=== PATIENT | male | born 1970 | race Asian ===

== ENCOUNTER 2019-01-26 17:01 | Emergency (ER) | payer BC, OTHER ==
[2019-01-26 17:56] LABS: BASOPHILS # (AUTO) 0.1 10^3/uL (0.0-0.1); BASOPHILS % (AUTO) 0.5 %; EOSINOPHILS # (AUTO) 0.2 10^3/uL (0.0-0.7); EOSINOPHILS % (AUTO) 1.7 %; HGB - HEMOGLOBIN 14.1 g/dL (14.0-18.0); LYMPHOCYTES # (AUTO) 1.8 10^3/uL (1.5-3.5); LYMPHOCYTES % (AUTO) 16.2 %; MEAN CORPUSCULAR HEMOGLOBIN 27.3 pg (27.0-31.0); MEAN CORPUSCULAR HGB CONC 31.8 g/dL (32.0-36.0); MEAN CORPUSCULAR VOLUME 85.7 fL (80.0-94.0); MEAN PLATELET VOLUME 10.8 fL (7.4-11.4); MONOCYTES # (AUTO) 0.6 10^3/uL (0.0-1.0); MONOCYTES % (AUTO) 5.4 %; NEUTROPHILS # (AUTO) 8.5 10^3/uL (1.5-6.6); NEUTROPHILS % (AUTO) 75.9 %; PLT - PLATELET COUNT 284 10^3/uL (130-450); RED BLOOD COUNT 5.17 10^6/uL (4.70-6.10); RED CELL DISTRIBUTION WIDTH 12.7 % (12.0-15.0); WHITE BLOOD COUNT 11.2 x10^3/uL (4.8-10.8)
[2019-01-26 18:07] LABS: ALBUMIN 4.3 g/dL (3.2-5.5); ALBUMIN/GLOBULIN RATIO 1.1 (1.0-2.2); BILIRUBIN,TOTAL 0.5 mg/dL (0.2-1.0); CALCIUM 9.2 mg/dL (8.5-10.3); TOTAL PROTEIN 8.2 g/dL (6.7-8.2)
--- NOTE | 2019-01-26 18:31 | ED Physician Documentation ---
History of Present Illness - Stated complaint Stated Complaint: MALE - Chief complaint Chief Complaint: Abd Pain - History obtained from History obtained from: Patient - History of Present Illness Timing: Prior to arrival - Additonal information Additional information: Patient is a 48-year-old male presenting with approximately 2 hours of midline abdominal pain that is associated with mild nausea but no vomiting. Patient denies urinary changes, stool changes, fever or other complaints. Prior to onset of discomfort, patient was at his usual state of health without issue. Patient does report multiple comorbid issues including hypertension, depression, ADHD for which he is relatively noncompliant with medications. No other improving or worsening factors noted. Review of Systems Constitutional: denies: Fever GI: reports: Abdominal Pain, Nausea. denies: Vomiting, Diarrhea : denies: Dysuria PD PAST MEDICAL HISTORY - Past Medical History Past Medical History: Yes Cardiovascular: Hypertension Psych: Depression, ADD/ADHD - Past Surgical History Past Surgical History: Yes General: Gastric surgery - Present Medications Home Medications: Ambulatory Orders Medication Instructions Recorded Confirmed Methylphenidate HCl [Ritalin] 10 mg PO TID 01/26/19 01/26/19 - Allergies Allergies/Adverse Reactions: Allergies Allergy/AdvReac Type Severity Reaction Status Date / Time No Known Drug Allergies Allergy Verified 01/26/19 17:27 PD ED PE NORMAL - Vitals Vital signs reviewed: Yes - General General: Alert and oriented X 3, No acute distress, Well developed/nourished - HEENT HEENT: Atraumatic, Moist mucous membranes - Neck Neck: Supple, no meningeal sign - Cardiac Cardiac: RRR, No murmur - Respiratory Respiratory: No respiratory distress, Clear bilaterally - Abdomen Abdomen: Soft, Non distended. No: Non tender (Mild tenderness in vertical pattern starting from epigastrium to suprapubic area) - Derm Derm: Normal color, Warm and dry, No rash - Extremities Extremities: No deformity, No tenderness to palpate - Neuro Neuro: Alert and oriented X 3, No motor deficit, No sensory deficit - Psych Psych: Normal mood, Normal affect Results - Vitals Vitals: Vital Signs - 24 hr 01/26/19 01/26/19 17:24 20:55 Temperature 36.2 C L Heart Rate 73 70 Respiratory 18 18 Rate Blood Pressure 163/108 H 178/108 H O2 Saturation 97 97 Oxygen O2 Source Room air - Labs Labs: Laboratory Tests 01/26/19 01/26/19 01/26/19 17:50 17:50 18:44 WBC 11.2 H RBC 5.17 Hgb 14.1 Hct 44.3 MCV 85.7 MCH 27.3 MCHC 31.8 L RDW 12.7 Plt Count 284 MPV 10.8 Neut # (Auto) 8.5 H Lymph # (Auto) 1.8 [place] # (Auto) 0.6 Eos # (Auto) 0.2 Baso # (Auto) 0.1 Absolute Nucleated RBC 0.00 Nucleated RBC % 0.0 Sodium 141 Potassium 3.0 L Chloride 104 Carbon Dioxide 26 Anion Gap 11.0 BUN 15 Creatinine 1.0 Estimated GFR (MDRD) 80 L Glucose 120 H Calcium 9.2 Total Bilirubin 0.5 AST 23 ALT 29 Alkaline Phosphatase 64 Total Protein 8.2 Albumin 4.3 Globulin 3.9 Albumin/Globulin Ratio 1.1 Lipase 42 Urine Color YELLOW Urine Clarity CLEAR Urine pH 6.5 Ur Specific [place] 1.020 Urine Protein TRACE Urine Glucose (UA) NEGATIVE Urine Ketones NEGATIVE Urine Occult Blood NEGATIVE Urine Nitrite NEGATIVE Urine Bilirubin NEGATIVE Urine Urobilinogen 0.2 (NORMAL) Ur Leukocyte Esterase NEGATIVE Ur Microscopic Review NOT INDICATED Urine Culture Comments NOT INDICATED PD MEDICAL DECISION MAKING - ED course Complexity details: reviewed results, re-evaluated patient, considered differential, d/w patient, d/w family ED course: Patient presenting with midline abdominal pain. Have lower suspicion for renal disease, UTI, diverticulitis, AAA, appendicitis, pancreatitis, but considered. Given body habitus and physical exam and considering gastritis, PUD, gallbladder disease, however, patient does not have right upper quadrant tenderness or positive Youngblood sign.Patient started on IV fluid, as well as nausea and pain medication. Screening lab work and urinalysis all returned relatively un remarkable. CT imaging also returned relatively unremarkable except for cholelithiasis otherwise uncomplicated. Discussed results recommendations including these findings on CT with patient and family, as well as recommendations for diet and hydration, return precautions, appropriate follow- up. Otherwise, feel that patient is safe to discharge home. Patient and family voiced understanding and are comfortable with discharge plan. Departure - Departure Disposition: 01 Home, Self Care Clinical Impression: Abdominal pain Condition: Good Instructions: ED Abdominal Pain Unkn Cause Follow-Up: Herman Banda MD [Primary Care Provider] - Within 3 Days Comments: Recommend avoidance of heavy, fried, fatty foods and instead starting with bland diet and advancing as tolerated. Recommend hydration with Powerade/Gatorade and follow-up with your primary care physician next 2 to 3 days. May also try alao-pwy-ejiiddy antacid medication such as Tums, omeprazole, ranitidine as instructed on the box. Return to ED sooner if experience worsening symptoms or have other concerns.
[2019-01-26] MEDS ORDERED: SODIUM CHLORIDE 0.9% 1,000 ML IV ONE (18:35)
[2019-01-26] MEDS ORDERED: ONDANSETRON 4 MG/2 ML VIAL IVP STA (18:36)
[2019-01-26] MEDS ORDERED: fentaNYL 100 MCG/2 ML VIAL IVP STA (18:36)
[2019-01-26 19:05] LABS: BILIRUBIN,URINE NEGATIVE (NEGATIVE); GLUCOSE, URINE (UA) NEGATIVE (NEGATIVE); KETONES,URINE (UA) NEGATIVE (NEGATIVE); LEUKOCYTE ESTERASE, URINE NEGATIVE (NEGATIVE); NITRITE,URINE NEGATIVE (NEGATIVE); OCCULT BLOOD,URINE NEGATIVE (NEGATIVE); PH,URINE 6.5 PH (5.0-7.5); PROTEIN,URINE TRACE mg/dL (NEGATIVE); UROBILINOGEN,URINE 0.2 (NORMAL) E.U./dL (NORMAL)
[2019-01-26 19:11] LABS: CLARITY,URINE CLEAR (CLEAR)
[2019-01-26] MEDS ORDERED: IOVERSOL 320 100 ML VIAL IVP ONE ×2 (19:43→20:05)
--- NOTE | 2019-01-26 20:35 | CT Report ---
Reason: midline abdominal pain Procedure Date: 01/26/2019 Accession Number: [id number] / [id number] Procedure: CT - Abdomen/Pelvis W CPT Code: FULL RESULT: EXAM: CT ABDOMEN AND PELVIS WITH CONTRAST. EXAM DATE: 01/26/2019 08:03 PM. CLINICAL HISTORY: Midline abdominal pain. COMPARISONS: None. TECHNIQUE: Routine helical CT imaging was performed through the abdomen and pelvis. IV contrast: 100 mL Optiray 320. Enteric contrast: No. Reconstructions: Coronal and sagittal. In accordance with CT protocol optimization, one or more of the following dose reduction techniques were utilized for this exam: automated exposure control, adjustment of mA and/or KV based on patient size, or use of iterative reconstructive technique. FINDINGS: Lung Bases: Unremarkable. Liver: Normal. No masses. Gallbladder/Bile Ducts: There is a 2.7 cm gallstone. No evidence of cholecystitis or bile duct obstruction. Spleen: Normal. Pancreas: Normal. Adrenal Glands: There is thickening of the right adrenal glands which contains a small calcification. There is a 1.7 cm left adrenal gland nodule with attenuation value of 72 Hounsfield units. Kidneys: Normal. No masses or hydronephrosis. Peritoneal Cavity/Bowel: Status post gastric sleeve surgery. No small bowel obstruction. No evidence of appendicitis. No free air or fluid collections. Pelvic Organs: Normal. The bladder and visualized pelvic organs are within normal limits. Vasculature: No aneurysms or other significant abnormality. Bones: No significant abnormality. Other: No hernias. IMPRESSION: 1. Cholelithiasis without evidence of cholecystitis or other acute inflammatory process. 2. Left adrenal gland nodule statistically most likely to represent a benign adenoma. Dedicated adrenal gland CT or MRI may be considered for confirmation. [facility]
[2019-01-26] MEDS ORDERED: HYDROmorphone 1 MG/ML CARPUJECT IVP STA (20:57)
[2019-01-26 21:28] VITALS: BP 166/114
== END 2019-01-26 21:27 | disposition home or self-care (01) ==
LOC: ED 17:01
DX: R10.9 Unspecified abdominal pain (principal); R11.0 Nausea; K80.20 Calculus of gallbladder without cholecystitis without obstruction; I10 Essential (primary) hypertension; F32.9 Major depressive disorder, single episode, unspecified; F90.9 Attention-deficit hyperactivity disorder, unspecified type; Z91.14 Patient's other noncompliance with medication regimen
CPT/HCPCS: 36415; 74177; 80053; 81003; 83690; 85025; 96374; 96375; 99283; 99284; J1170; Q9967; 81001; 87086